=== PATIENT | male | born 1995 | race African-American/Black ===

== ENCOUNTER → 2020-06-23 | Outpatient (CLI) | payer OTHER ==
[~2020-06-23] MED LIST: ANTIBIOTIC; BACTRIM DS TAB1 EACH PO; CALAMINE MEDIC TP; CLARITIN10 M2 PO; FLEXERIL PO; IBUPROFEN 800800 MG PO; NOHOMEMEDICATIONS; NORCO 5-325 TA1 EACH PO
== END ==
LOC: LAB 10:51
PROVIDERS: ATTEND Nurse Practitioner
DX: U07.1 COVID-19 (principal)